=== PATIENT | female | born 1955 | race Caucasian/White ===

== ENCOUNTER 2016-12-13 10:20 | Emergency (ER) | payer OTHER ==
[~2016-12-13] VITALS: Ht 149.9 cm; Wt 76.7 kg
[~2016-12-13 10:20] MED LIST: AMBIEN5 MG PO; ATARAX,VISTARIL50 MG PO; BUSPAR10 MG PO; DITROPAN5 MG PO; FLUOXETINE HCL40 MG PO; HYDROCODON-ACE1 EAC9 PO; KLONOPIN2 MG PO; LEXAPRO20 MG PO; NAPROSYN375 MG PO; NEXIUM40 MG PO; NORCO 5/3251 TABLET PO; PROTONIX40 MG PO; SYMBICORT60 INHALAT IH; TRAMADOL HCL50 MG PO; VENTOLIN HFA18 GM IH; XANAX1 MG PO
[2016-12-13] MEDS ORDERED: XANAX1 MG PO (12:07)
[2016-12-13 12:28] VITALS: BP 137/104
== END 2016-12-13 12:29 | disposition home or self-care (01) ==
LOC: EME 10:20
DX: F33.1 Major depressive disorder, recurrent, moderate (principal); F41.1 Generalized anxiety disorder; Z88.6 Allergy status to analgesic agent
CPT/HCPCS: 90839; 99281; 99284

== ENCOUNTER 2018-04-09 08:03 | Day surgery (SDC) | payer OTHER ==
[~2018-04-09] VITALS: Ht 149.9 cm; Wt 90.3 kg
[~2018-04-09 08:03] MED LIST changes: +ADVIL200 MG PO; +ALPRAZOLAM0.5 MG PO; +BIOTIN1000 MCG PO; +MAGNESIUM250 MG PO; +OXYBUTYNIN CHLOR5 MG PO; +POTASSIUM GLUCO99 M1 PO; +TYLENOL WITH C1 EACH PO
== END 2018-04-09 09:55 | disposition home or self-care (01) ==
LOC: PAIN 08:03 → SDC 08:30 → PAIN 08:30
DX: M47.816 Spondylosis without myelopathy or radiculopathy, lumbar region (principal); M51.16 Intervertebral disc disorders with radiculopathy, lumbar region; G89.29 Other chronic pain; J45.21 Mild intermittent asthma with (acute) exacerbation; E78.5 Hyperlipidemia, unspecified; K21.9 Gastro-esophageal reflux disease without esophagitis; E66.9 Obesity, unspecified; Z68.41 Body mass index [BMI] 40.0-44.9, adult; G47.33 Obstructive sleep apnea (adult) (pediatric)
CPT/HCPCS: J1030; J2250; S0020

== ENCOUNTER 2018-04-17 07:58 | Day surgery (SDC) | payer OTHER ==
[~2018-04-17] VITALS: Ht 149.9 cm; Wt 88.5 kg
== END 2018-04-17 09:51 | disposition home or self-care (01) ==
LOC: PAIN 07:58 → SDC 08:30 → PAIN 08:30
PROC: 3E0T3TZ Introduction of Destructive Agent into Peripheral Nerves and Plexi, Percutaneous Approach (ICD-10-PCS; principal; 2018-04-17)
PROC: BR161ZZ Fluoroscopy of Lumbar Facet Joint(s) using Low Osmolar Contrast (ICD-10-PCS; principal; 2018-04-17)
DX: M47.816 Spondylosis without myelopathy or radiculopathy, lumbar region (principal); M51.16 Intervertebral disc disorders with radiculopathy, lumbar region; G89.29 Other chronic pain; K21.0 Gastro-esophageal reflux disease with esophagitis; E78.5 Hyperlipidemia, unspecified; J45.21 Mild intermittent asthma with (acute) exacerbation; R73.03 Prediabetes
CPT/HCPCS: J1030; J2250; S0020